=== PATIENT | female | born 1990 | race Caucasian/White ===

== ENCOUNTER → 2020-01-14 16:15 | Outpatient (BNVA) | payer BC, SELFPAY | PROVIDERS: PCP Family Medicine; Visit Provider Obstetrics & Gynecology | DX: N97.9 Female infertility, unspecified (principal) | CPT/HCPCS: 83001; 83520; 84450 ==

== ENCOUNTER → 2020-01-31 16:10 | Outpatient (BNVA) | payer BC, SELFPAY | PROVIDERS: PCP Family Medicine; Visit Provider Obstetrics & Gynecology | DX: E28.2 Polycystic ovarian syndrome (principal) | CPT/HCPCS: 84144 ==

== ENCOUNTER → 2020-03-31 16:20 | Outpatient (BNVA) | payer BC, SELFPAY | PROVIDERS: PCP Family Medicine; Visit Provider Obstetrics & Gynecology | DX: E28.2 Polycystic ovarian syndrome (principal); Z34.90 Encounter for supervision of normal pregnancy, unspecified, unspecified trimester | CPT/HCPCS: 84144 ==

== ENCOUNTER → 2020-05-18 16:18 | Outpatient (BNVA) | payer BC, SELFPAY | PROVIDERS: PCP Family Medicine; Visit Provider Obstetrics & Gynecology | DX: E28.2 Polycystic ovarian syndrome (principal) | CPT/HCPCS: 84144 ==

== ENCOUNTER → 2020-06-29 15:07 | Outpatient (BNVA) | payer BC, SELFPAY | PROVIDERS: PCP Family Medicine; Visit Provider Obstetrics & Gynecology | DX: Z31.41 Encounter for fertility testing (principal) | CPT/HCPCS: 76830 ==

== ENCOUNTER → 2020-07-06 16:05 | Outpatient (BNVA) | payer BC, SELFPAY | PROVIDERS: PCP Family Medicine; Visit Provider Obstetrics & Gynecology | DX: N92.6 Irregular menstruation, unspecified (principal) | CPT/HCPCS: 84144 ==

== ENCOUNTER 2020-09-03 09:14 | Outpatient (CLI) | payer BC, SELFPAY ==
--- NOTE | 2020-09-03 10:00 | FL_ITS ---
WS: [id number] Hysterosalpingogram, 09/03/2020 Clinical Data: N97.9 - Female infertility, unspecified Fluoroscopy time: 1.6 minutes Comparison: None. Findings: Dr. Celaya injected the contrast material into the uterus. The uterine cavity filled normally and the re were minimal irregularities of the wall. The fallopian tubes fill normally and there was bilateral spill. No fallopian tube obstruction was seen. FL/FL hysterosalpingography [id number] Impression: 1. Negative for fallopian tube obstruction. 2. Minimal surface irregularities of the uterine cavity.
[2020-09-03] MEDS: iohexol 300 mg/mL 50 mL Btl VAGINAL (10:34)
== END 2020-09-03 09:15 | disposition home or self-care (01) ==
LOC: RAD 09:16
PROVIDERS: PCP Family Medicine; Visit Provider Obstetrics & Gynecology
DX: N97.9 Female infertility, unspecified (principal)
CPT/HCPCS: 74740

== ENCOUNTER → 2020-09-25 11:09 | Outpatient (BNVA) | payer BC, SELFPAY | PROVIDERS: PCP Family Medicine; Visit Provider Obstetrics & Gynecology | DX: N91.2 Amenorrhea, unspecified (principal) | CPT/HCPCS: 82670; 83001; 84146 ==

== ENCOUNTER → 2020-11-06 14:37 | Outpatient (BNVA) | payer BC, SELFPAY | PROVIDERS: PCP Family Medicine; Visit Provider Obstetrics & Gynecology | DX: N97.0 Female infertility associated with anovulation (principal) | CPT/HCPCS: 76830 ==

== ENCOUNTER 2021-09-11 11:03 | Emergency (ER) | payer BC, SELFPAY ==
[2021-09-11 11:08] VITALS: BP 187/115; PULSE 82; RESP 18; TEMP 36.8; O2SAT 98
--- NOTE | 2021-09-11 11:30 | ECG_ITS ---
[facility] Test Date: 2021-09-11 Pat Name: Mary Smith Department: Room: Gender: Female Tail Edger: : 1990 Requested By: Juan Manuel Campbell Order Number: [id number] Kiera MD: Yumiko Hicks M.D. Measurements Intervals [place] Rate: 81 P: 55 TN: 173 QRS: 12 QRSD: 109 T: 22 QT: 374 QTc: 436 Interpretive Statements SINUS RHYTHM LEFT ATRIAL ENLARGEMENT [-0.15mV P-WAVE IN V1/V2] No previous ECG available for comparison Electronically Signed On 09-12-2021 13:03:54 CDT by Yumiko Hicks M.D. [id number]
--- NOTE | 2021-09-11 11:31 | ED_ITS ---
HPI - Arrhythmia/Palpitations General: Chief Complaint: Arrhythmia/Palpitations Stated Complaint: feels like her hearts fluttering Time Seen by Provider: 09/11/21 11:16 History of Present Illness: Patient comes in with palpitations. States that she has had these weird fluttering feelings in her heart for a long time, however they have become more frequent over the last couple months. She was seen by her primary care provider about a month ago and placed on a cardiac event monitor which she has turned in but not heard the results of. States that today these palpitations have become almost constant throughout the morning. She denies fever, chest pain, shortness of breath, cough, vomiting, diarrhea, or other sick symptoms. States she does have a history of PCOS. Associated symptoms: Deny anxiety, nausea or vomiting Review of Systems Const: Denies: fever(s) or body aches Eyes: Denies: change in vision or blurry vision ENMT: Denies: throat pain or odynophagia Card: Reports: palpitations; Denies: chest pain Resp: Denies: dyspnea or productive cough GI: Denies: abdominal pain, nausea or vomiting : Denies: flank pain or dysuria Musc: Denies: neck pain or back pain Skin/Breast: Denies: rash or pruritus Neuro: Denies: headache(s) or numbness in extremities Psych: Denies: anxiety or change in appetite Endo: Denies: polyuria or excessive sweating PFSH ED PFSH: Medical History (Updated 09/11/21 @ 14:25 by Juan Manuel Campbell MD) PCOS (polycystic ovarian syndrome) Family History Mother Stroke Diabetes Father Hypertension Denies family history of Colon cancer Ovarian cancer Clotting disorder Heart disease Hyperlipidemia Breast cancer Anesthesia complication Bleeding disorder Uterine cancer Thyroid condition Social History (Updated 03/02/21 @ 16:04 by Mariel Leija RN) Smoking and tobacco status: never smoked Alcohol intake: never Female Reproductive History: Date of last menstrual period: 08/01/21 Physical Exam Const: COMMON NORMALS: no acute distress, patient oriented x3, healthy appearing and alert HENMT: COMMON NORMALS: normocephalic and atraumatic HEAD & SCALP: normocephalic and atraumatic Eye: COMMON NORMALS: Equal, round and reactive pupils present and EOMs intact bilaterally PUPIL: Yes Equal, round and reactive pupils present Neck/C-Spine: COMMON NORMALS: full ROM and supple Resp: COMMON NORMALS: normal respiratory effort, No retractions and No use of accessory muscles Cardio: COMMON NORMALS: regular rate and regular rhythm RATE: regular rate RHYTHM: regular rhythm GI: COMMON NORMALS: Normal to inspection, nondistended, normoactive bowel s ounds present, Soft to palpation and non-tender PALPATION: Yes Soft to pa lpation Back/Pelvis: COMMON NORMALS: thoracic and lumbar spine normal to inspection and no thoracic nor lumbar tenderness Extremity: COMMON NORMALS: normal to inspection and full ROM Neuro: COMMON NORMALS: patient oriented x3 SENSORIUM/ORIENTATION: Yes alert Psych: COMMON NORMALS: mental status grossly normal and cooperative Skin: COMMON NORMALS: no rashes or lesions noted and no wounds GENERAL SKIN EXAM: no rashes or lesions noted Course Vital Signs: Vital signs: Vital Signs Temperature 98.2 F 09/11/21 11:08 Pulse Rate 79 09/11/21 11:48 Respiratory Rate 21 H 09/11/21 11:48 Blood Pressure 161/104 09/11/21 11:48 Pulse Oximetry 98 09/11/21 11:08 MDM - Arrhythmia/Palpitations Medical Decision Making Patient comes in with palpitations. States that she has had these weird fluttering feelings in her heart for a long time, however they have become more frequent over the last couple months. She was seen by her primary care provider about a month ago and placed on a cardiac event monitor which she has turned in but not heard the results of. States that today these palpitations have become almost constant throughout the morning. She denies fever, chest pain, shortness of breath, cough, vomiting, diarrhea, or other sick symptoms. States she does have a history of PCOS. Physical exam at this time is unremarkable. Will check labs, EKG, and reassess. On reassessment I talked to cardiology and reviewed the EKG including the concerning subtle findings for possible J waves and/or delta waves. I talked to the patient about the test results. Will refer to cardiology for follow-up as an outpatient. Plan to discharge home at this time with precautions to return for worsening or changing symptoms. Lab Data : 09/11/21 11:45 09/11/21 12:35 Radiology Impressions Chest X-Ray 09/11/21 11:40 IMPRESSION: No acute findings. Laboratory Results WBC 8.3 10^3/uL (4.0-10.0) 09/11/21 11:45 RBC 5.16 10^6/uL (4.1-5.3) 09/11/21 11:45 Hgb 13.5 g/dL (11.5-15.3) 09/11/21 11:45 Hct 41.1 % (37.0-47.0) 09/11/21 11:45 MCV 79.7 fl (81-99) L 09/11/21 11:45 MCH 26.2 pg (28.0-34.0) L 09/11/21 11:45 MCHC 32.8 g/dL (30.0-36.0) 09/11/21 11:45 RDW 14.0 % (12.1-15.1) 09/11/21 11:45 Plt Count 233 10^3/cmm (130-400) 09/11/21 11:45 MPV 10.2 fL (7.4-10.4) 09/11/21 11:45 Neut % (Auto) 66.7 % 09/11/21 11:45 Lymph % (Auto) 21.2 % 09/11/21 11:45 [place] % (Auto) 3.6 % 09/11/21 11:45 Eos % (Auto) 6.9 % 09/11/21 11:45 Baso % (Auto) 1.0 % 09/11/21 11:45 Neut # (Auto) 5.50 10^3/uL (1.8-7.7) 09/11/21 11:45 Lymph # (Auto) 1.8 10^3/uL (0.8-4.8) 09/11/21 11:45 [place] # (Auto) 0.3 10^3/uL (0.2-0.9) 09/11/21 11:45 Eos # (Auto) 0.6 10^3/uL (0.0-0.8) 09/11/21 11:45 Baso # (Auto) 0.1 10^3/uL (0.0-0.1) 09/11/21 11:45 Nucleated RBC % (auto) 0 % 09/11/21 11:45 Nucleated RBCs # 0.0 /100WBC 09/11/21 11:45 Sodium 143 mmol/L (136-145) 09/11/21 12:35 Potassium 3.9 mmol/L (3.5-5.1) 09/11/21 12:35 Chloride 107 mmol/L (98-107) 09/11/21 12:35 Carbon Dioxide 25 mmol/L (22-29) 09/11/21 12:35 Anion Gap 14.9 (5-19) 09/11/21 12:35 BUN 11 mg/dL (6-20) 09/11/21 12:35 Creatinine 0.5 mg/dL (0.5-0.9) 09/11/21 12:35 GFR Calculation 143.9 mL/min (90-130) H 09/11/21 12:35 Glucose 118 mg/dL (65-115) H 09/11/21 12:35 Calculated Osmolality 296 mOsm/kg (285-295) H 09/11/21 12:35 Calcium 9.2 mg/dL (8.5-10.5) 09/11/21 12:35 Magnesium 1.7 mg/dL (1.7-2.3) 09/11/21 12:35 Total Bilirubin 0.2 mg/dL (0.15-1.2) 09/11/21 12:35 AST 18 U/L (0-32) 09/11/21 12:35 ALT 17 U/L (0-33) 09/11/21 12:35 Alkaline Phosphatase 75 IU/L (35-105) 09/11/21 12:35 Total Protein 7.1 g/dL (6.6-8.7) 09/11/21 12:35 Albumin 3.9 g/dL (3.5-5.2) 09/11/21 12:35 Globulin 3.2 g/dL (1.3-4.6) 09/11/21 12:35 TSH 1.43 uIU/mL (0.27-4.20) 09/11/21 12:35 EKG Data EKG done at 11:33 AM and interpreted at 11:44 AM shows sinus rhythm, no ST segment elevation, left atrial enlargement, normal axis, possible delta wave inferolateral leads with concern for J wave in inferior leads: Other EKG comments: Chest X-Ray 09/11/21 11:40 IMPRESSION: No acute findings. Discharge Plan Discharge Patient Disposition: Home Clinical Impression: Palpitations Condition: Stable Prescriptions: No Action sumatriptan succinate 100 mg tablet See Rx Instructions PO .COMPLEX 0RF Rx Instructions: take 1 tab at onset of headache; if no relief, may repeat 1 tab after at least 2 hrs; max = 2 tabs/24 hrs PO albuterol sulfate [ProAir HFA] 90 mcg/actuation HFA aerosol inhaler 2 puff INHALATION Q6H PRN (Reason: Shortness Of Breath) 0RF metformin 1,000 mg tablet 1,000 mg PO BID Qty: 60 3RF Vitamin C 500 mg Tablet 500 mg PO DAILY 0RF Discharge Orders: Discharge ED (Routine); Ordered 09/11/21 Ordered By: Juan Manuel Campbell Referrals: Liliam Moise DO [Primary Care Provider] - Coding Level of Care Code ED Mechanical And Auto [employer] Car Checker for Chg Fwd Exam Comprehensive
--- NOTE | 2021-09-11 11:40 | XRR_ITS ---
PROCEDURE INFORMATION: Exam: XR Chest Exam date and time: 09/11/2021 11:44 AM Age: 30 years old Clinical indication: Pain; Chest pressure; Additional info: Chest pain TECHNIQUE: Imaging protocol: Radiologic exam of the chest. Views: 2 views. COMPARISON: No relevant prior studies available. FINDINGS: Lungs: Unremarkable. No consolidation. Pleural spaces: Unremarkable. No pleural effusion. No pneumothorax. Heart/Mediastinum: Unremarkable. No cardiomegaly. Bones/joints: Unremarkable. XR/XR chest 2V* [id number] IMPRESSION: No acute findings.
[2021-09-11 11:48] VITALS: BP 161/104; PULSE 79; RESP 21
[2021-09-11 12:12] LABS: Basophils # 0.1 10^3/uL (0.0-0.1); Eosinophils # 0.6 10^3/uL (0.0-0.8); Eosinophils % 6.9 %; Hematocrit 41.1 % (37.0-47.0); Hemoglobin 13.5 g/dL (11.5-15.3); Lymphocytes # 1.8 10^3/uL (0.8-4.8); Lymphocytes % 21.2 %; Mean Corpuscular HGB Conc 32.8 g/dL (30.0-36.0); Mean Corpuscular Hemoglobin 26.2 pg (28.0-34.0); Mean Corpuscular Volume 79.7 fl (81-99); Mean Platelet Volume 10.2 fL (7.4-10.4); Monocytes # 0.3 10^3/uL (0.2-0.9); Monocytes % 3.6 %; Neutrophils % 66.7 %; Nucleated Red Blood Cells % 0 %; Platelet Count 233 10^3/cmm (130-400); Red Blood Count 5.16 10^6/uL (4.1-5.3); White Blood Count 8.3 10^3/uL (4.0-10.0)
[2021-09-11 13:33] LABS: Alanine Aminotransferase 17 U/L (0-33); Albumin Level 3.9 g/dL (3.5-5.2); Alkaline Phosphatase 75 IU/L (35-105); Anion Gap 14.9 (5-19); Aspartate Amino Transferase 18 U/L (0-32); Blood Urea Nitrogen 11 mg/dL (6-20); Calcium 9.2 mg/dL (8.5-10.5); Carbon Dioxide 25 mmol/L (22-29); Chloride 107 mmol/L (98-107); Globulin 3.2 g/dL (1.3-4.6); Glomerular Filtration Rate 143.9 mL/min (90-130); Glucose 118 mg/dL (65-115); Magnesium 1.7 mg/dL (1.7-2.3); Osmolality Calculated 296 mOsm/kg (285-295); Potassium 3.9 mmol/L (3.5-5.1); Sodium 143 mmol/L (136-145); Thyroid Stimulating Hormone 1.43 uIU/mL (0.27-4.20); Total Bilirubin 0.2 mg/dL (0.15-1.2); Total Protein 7.1 g/dL (6.6-8.7)
[2021-09-11 14:35] VITALS: BP 156/85; PULSE 81; RESP 12; O2SAT 97
--- NOTE | 2021-09-12 08:00 | DCPLANNER ---
Addendum entered by Darlin Yan 11/19/21 16:21: Patient had a follow up appointment scheduled for 11.04.21 with [facility] - patient did attend appointment. Addendum entered by Darlin Yan 10/17/21 15:22: Patient has a follow up appointment scheduled for October at 10:[address] Bazzi. Clinic will notify patient with appointment information. Original Note: senior category manager had message to schedule a follow up appointment for patient with cardiology. senior category manager sent patients information to the front office staff at [facility]. Patients information will be printed and reviewed. Clinic will call patient with appointment information.
== END 2021-09-11 14:38 | disposition home or self-care (01) ==
PROVIDERS: Emergency Provider Emergency Medicine; PCP Family Medicine
DX: R00.2 Palpitations (principal)
CPT/HCPCS: 71046; 80053; 83735; 84443; 85025; 93005; 99283

== ENCOUNTER 2021-09-28 04:54 | Emergency (ER) | payer OTHER, SELFPAY ==
[2021-09-28 04:57] VITALS: BP 170/88; PULSE 69; RESP 18; TEMP 36.9; O2SAT 99; BMI 46.0
--- NOTE | 2021-09-28 05:04 | ED_ITS ---
HPI - Dental/Oral General: Chief complaint: Dental/Oral Stated complaint: Face Swollen Time Seen by Provider: 09/28/21 04:57 Source: patient Mode of arrival: ambulatory Limitations: no limitations History of Present Illness: 30-year-old female who states she been having left upper dental pain over the last 2 days. States she was seen yesterday started amoxicillin that she just started and states she has had increased pain and was unable to sleep tonight and some facial swelling. States her pain is sharp in nature rates it a 7 out of 10 is worse with palpation and eating. She denies any fevers denies any difficulty swallowing. Associated symptoms: Denies fever(s) Review of Systems Const: Denies: fever(s), chills, body aches or change in appetite Eyes: Denies: blurry vision or eye discomfort ENMT: Reports: mouth pain and dental pain Card: Denies: chest pain Resp: Denies: dyspnea GI: Denies: abdominal pain, nausea, vomiting or diarrhea : Denies: dysuria Musc: Denies: neck pain or back pain Skin/Breast: Denies: rash Neuro: Denies: headache(s) Psych: Denies: depression Efra/Lymph: Denies: easy bruising All/Imm: Denies: urticaria PFSH ED PFSH: Medical History (Updated 09/28/21 @ 05:08 by Alex Ca MD) Nasal sinus congestion PCOS (polycystic ovarian syndrome) Surgical History (Updated 09/27/21 @ 11:05 by Ryan Russell MD) S/P dilatation and curettage 2016 Family History Mother Stroke Diabetes Father Hypertension Denies family history of Colon cancer Ovarian cancer Clotting disorder Heart disease Hyperlipidemia Breast cancer Anesthesia complication Bleeding disorder Uterine cancer Thyroid condition Social History (Updated 03/02/21 @ 16:04 by Mariel Leija RN) Smoking and tobacco status: former smoker Alcohol intake: never Female Reproductive History: Date of last menstrual period: 08/01/21 Physical Exam Const: COMMON NORMALS: no acute distress, patient oriented x3 and healthy appearing HENMT: COMMON NORMALS: normocephalic and atraumatic HEAD & SCALP: normocephalic and atraumatic OTHER: Tenderness to left upper incisor with no obvious abscess formation does have some swelling in the left side of her face no trismus. Eye: COMMON NORMALS: Equal, round and reactive pupils present and EOMs intact bilaterally PUPIL: Yes Equal, round and reactive pupils present Neck/C-Spine: COMMON NORMALS: full ROM and supple Chest: COMMONS NORMALS: normal inspection of the chest and normal palpation of entire chest wall Resp: COMMON NORMALS: normal respiratory effort, No retractions, No use of accessory muscles and clear to auscultation bilaterally AUSCULTATION: clear to auscultation bilaterally Cardio: COMMON NORMALS: regular rate, regular rhythm and No murmurs present (Cardio) RATE: regular rate RHYTHM: regular rhythm GI: COMMON NORMALS: Normal to inspection, nondistended, normoactive bowel sounds present, Soft to palpation, non-tender and no masses PALPATION: Yes Soft to palpation Extremity: COMMON NORMALS: normal to inspection and full ROM Neuro: COMMON NORMALS: patient oriented x3, moves all extremities and no focal motor deficits Psych: COMMON NORMALS: mental status grossly normal, Normal thought process present and cooperative THOUGHT PROCESS: Normal thought process present Skin: COMMON NORMALS: no rashes or lesions noted and no wounds GENERAL SKIN EXAM: no rashes or lesions noted MDM - Dental/Oral Medical Decision Making Patient presents for dental pain with likely dental infection no obvious abscess or trismus does have some facial swelling likely from a dental infection did give her Rocephin here she is continue to take Amoxil we will prescribe her hydrocodone as well. She is to follow-up with a dentist and return if worsening she understands agrees to plan. Discharge Plan Discharge Patient Disposition: Home Clinical Impression: Pain, dental, Dental infection Condition: Stable Prescriptions: New hydrocodone-acetaminophen 5-325 mg tablet 1 tab PO Q6H PRN (Reason: pain) Qty: 14 0RF No Action sumatriptan succinate 100 mg tablet See Rx Instructions PO .COMPLEX 0RF Rx Instructions: take 1 tab at onset of headache; if no relief, may repeat 1 tab after at least 2 hrs; max = 2 tabs/24 hrs PO albuterol sulfate [ProAir HFA] 90 mcg/actuation HFA aerosol inhaler 2 puff INHALATION Q6H PRN (Reason: Shortness Of Breath) 0RF amoxicillin 875 mg tablet 875 mg PO BID Qty: 14 0RF fluticasone propionate 50 mcg/actuation spray,suspension 2 spray intranasal BID Qty: 16 0RF Rx Instructions: administer into each nostril metformin 1,000 mg tablet 1,000 mg PO BID Qty: 60 3RF Vitamin C 500 mg Tablet 500 mg PO DAILY 0RF Discharge Orders: Discharge ED (Routine); Ordered 09/28/21 Ordered By: Alex Ca Referrals: Liliam Moise DO [Primary Care Provider] - Discharge Diet: Advance as tolerated Discharge Activity: Resume usual activity Patient Instructions: Toothache (ED), Opioid Safety Coding Level of Care Code ED Anodize Machine Operator for Terry Guerrero
[2021-09-28] MEDS: HYDROcodone-acetaminophen 5-325 mg Tablet 1 TAB PO (05:20)
[2021-09-28] MEDS: cefTRIAXone 1,000 MG in lidocaine 1% 2.1 ML 2.1 MG IM (05:33)
[2021-09-28 05:37] VITALS: BP 169/80; PULSE 69; RESP 18; O2SAT 99
[2021-09-28 05:46] VITALS: BP 169/80; PULSE 69; RESP 18; O2SAT 99
== END 2021-09-28 05:48 | disposition home or self-care (01) ==
PROVIDERS: Emergency Provider Emergency Medicine; PCP Family Medicine
DX: K04.7 Periapical abscess without sinus (principal); Z79.84 Long term (current) use of oral hypoglycemic drugs; Z87.891 Personal history of nicotine dependence
CPT/HCPCS: 99284; J0696

== ENCOUNTER 2022-03-18 11:32 | Outpatient (CLI) | payer OTHER, MEDICAID, SELFPAY ==
--- NOTE | 2022-03-18 12:00 | USCV_ITS ---
Luis Mary Age: 31 Gender: F : 1990 Exam Date: 03/18/2022 11:45 Ordering Phys: Lucia Bazzi MD ([email or web address]) Technologist: Danielle Lindsay [place] [facility] [place]ication: LAE BP: 137 / 70 HR: 70 Rhythm: Sinus Technical Quality: Adequate MEASUREMENTS (Male / Female) Normal Values 2D ECHO LV Diastolic Diameter PLAX 3.2 cm 4.2 - 5.9 / 3.9 - 5.3 cm LV Systolic Diameter PLAX 2.6 cm LV Chamber Size 3.1 cm IVS Diastolic Thickness 1.4 cm 0.6 - 1.0 / 0.6 - 0.9 cm IVS Systolic Thickness 1.6 cm LVPW Diastolic Thickness 1.5 cm 0.6 - 1.0 / 0.6 - 0.9 cm LVPW Systolic Thickness 2.1 cm RV Chamber Size 3.5 cm LVOT Diameter 2.0 cm LV Ejection Fraction 2D Teich 41.2 % LV Ejection Fraction MOD 2C 72.0 % LV Ejection Fraction 2C AL 71.4 % LA Diameter 4.5 cm LA Width 3.4 cm LA Height 3.6 cm RA Width 3.1 cm RA Height 3.6 cm Aorta at Sinotubular Diameter 3.5 cm M-MODE Aortic Annulus Diameter 3.6 cm LA Ao Ratio MM 1.4 MV E Point Septal Separation 0.5 cm DOPPLER AV Peak Velocity 150.0 cm/s LVOT Peak Velocity 78.3 cm/s AV Area Cont Eq vti 2.0 cm squared AV Area Cont Eq pk 1.7 cm squared MV Area PHT 2.8 cm squared Mitral E to A Ratio 1.4 MV E' Velocity 44.0 cm/s Mitral E to MV E' Ratio 7.8 Mitral E to LV E' Lateral Ratio 6.5 Mitral E to LV E' Septal Ratio 10.0 TR Peak Velocity 173.5 cm/s TR Peak Gradient 12.0 mmHg TR Mean Velocity 120.6 cm/s TR Mean Gradient 7.2 mmHg TR Velocity Time Integral 42.7 cm TV Peak E Velocity 59.0 cm/s Right Atrial Pressure 3.0 mmHg Pulmonary Artery Systolic Pressu 15.0 mmHg RV Acceleration Time 0.1 s RV Ejection Time 0.3 s RV AcT/ET 0.4 FINDINGS Left Ventricle Normal left ventricular size and systolic function, EF 64 %. No regional wall motion abnormalities. Right Ventricle Normal right ventricular size and systolic function. Right Atrium The right atrium is normal in size. Left Atrium The left atrium is normal in size. Mitral Valve No gross abnormalities noted Aortic Valve No gross abnormalities noted Tricuspid Valve No gross abnormalities noted Pulmonic Valve Pulmonic valve not well visualized. Pericardium No pericardial effusion. Aorta Normal aortic annulus size. IVC The inferior vena cava appears normal. CONCLUSIONS Normal left ventricular size and systolic function, EF 64 %. Cardiac chamber sizes appear to be within normal limits No regional wall motion abnormalities. No significant stenotic or regurgitant lesions. There is no pericardial effusion. There are no intracardiac masses. No previous study is available for comparison. Dr Lucia Bazzi MD FACC (Electronically Signed) Final Date: 18 March 2022 12:38 S
== END 2022-03-18 11:33 | disposition home or self-care (01) ==
LOC: RAD 11:34
PROVIDERS: PCP Registered Nurse; Visit Provider Internal Medicine Cardiovascular Disease
DX: R94.31 Abnormal electrocardiogram [ECG] [EKG] (principal); R06.09 Other forms of dyspnea
CPT/HCPCS: 93306

== ENCOUNTER 2022-03-18 11:35 | Outpatient (CLI) | payer OTHER, MEDICAID, SELFPAY ==
--- NOTE | 2022-03-18 11:47 | ECG_ITS ---
[facility] Test Date: 2022-03-18 Pat Name: Mary Smith Department: Room: Gender: Female Tread Cutter: : 1990 Requested By: Lucia Bazzi Order Number: [id number] Kiera MD: Lcuia Bazzi M.D. Interpretive Statements NAME OF STUDY: TREADMILL STRESS TEST INDICATION: Palpitations/Abnormal EKG, PROCEDURE: At the baseline, the patient's blood pressure was 110/87 with a heart rate of 87. The baseline electrocardiogram showed normal sinus rhythm with normal ST-Ts.. The patient exercised for 6 minutes and 46 seconds on a standard Huang protocol. Patient attained a maximum heart rate of 176 beats per minute(93% of the maximum predicted heart rate) with a blood pressure at the peak exercise of 199/111 mm Hg. The EKG at the peak exercise revealed right bundle branch block pattern. Patient did not have any chest pain or any significant cardiac arrhythmias with the exercise During the recovery phase, there were no new changes. Blood pressure at the end of the recovery phase was 130/77 mm Hg with a heart rate of 104 per minute. CONCLUSION: 1. Nonspecific EKG response to treadmill exercise 2. No exercise-induced chest pain or cardiac arrhythmia 3. Fair exercise tolerance, attained a maximum of 10.2 METs Electronically Signed On 03-22-2022 18:21:31 LIBRARY SALES CONSULTANT by Lucia Bazzi M.D. [id number]
[2022-03-18 12:00] VITALS: BMI 46.8
[2022-03-18 12:45] VITALS: BP 130/77; PULSE 99
== END 2022-03-18 11:36 | disposition home or self-care (01) ==
LOC: CDL 11:36
PROVIDERS: PCP Registered Nurse; Visit Provider Internal Medicine Cardiovascular Disease
DX: R00.2 Palpitations (principal); R94.31 Abnormal electrocardiogram [ECG] [EKG]
CPT/HCPCS: 93017

== ENCOUNTER → 2022-06-06 12:09 | Outpatient (BNVA) | payer OTHER, MEDICAID, SELFPAY | PROVIDERS: PCP Registered Nurse; Visit Provider Obstetrics & Gynecology | DX: N97.9 Female infertility, unspecified (principal) | CPT/HCPCS: 82670; 83001; 83520 ==

== ENCOUNTER → 2022-06-24 08:05 | Outpatient (BNVA) | payer OTHER, MEDICAID, SELFPAY | PROVIDERS: PCP Registered Nurse; Visit Provider Obstetrics & Gynecology | DX: E28.2 Polycystic ovarian syndrome (principal) | CPT/HCPCS: 84144 ==

== ENCOUNTER → 2024-10-24 10:44 | Outpatient (BNVA) | payer OTHER, SELFPAY | PROVIDERS: PCP Family Medicine; Visit Provider Obstetrics & Gynecology | DX: Z01.419 Encounter for gynecological examination (general) (routine) without abnormal findings (principal) | CPT/HCPCS: 87624 ==

== ENCOUNTER → 2024-10-25 08:04 | Outpatient (BNVA) | payer OTHER, SELFPAY | PROVIDERS: PCP Family Medicine; Visit Provider Obstetrics & Gynecology | DX: N97.0 Female infertility associated with anovulation (principal); E66.01 Morbid (severe) obesity due to excess calories; Z68.42 Body mass index [BMI] 45.0-49.9, adult; E28.2 Polycystic ovarian syndrome | CPT/HCPCS: 80053; 82951; 83001; 84146; 84402; 84403; 84443 ==